=== PATIENT | male | born 1960 | race Caucasian/White ===

== ENCOUNTER 2017-03-29 09:11 | Emergency (ER) | payer SELFPAY ==
[~2017-03-29] VITALS: Ht 177.8 cm; Wt 80.0 kg
[~2017-03-29 09:11] MED LIST: PERC5TAB12 PO
[2017-03-29 09:12] VITALS: BP 170/94; PULSE 80; RESP 20; TEMP 98.3; O2SAT 99
[2017-03-29] MEDS ORDERED: SODIUM CHLOR 0.9% 1000 ML INJ 1,000 ML IV SCH (09:44)
[2017-03-29] MEDS ORDERED: SODIUM CHLORIDE 0.9% FLUSH 10 ML FLUSH IV FLUSH PRN (09:45)
[2017-03-29] MEDS ORDERED: MORPHINE SULFATE 4 MG/ML INJ IV PUSH ONE (09:45)
[2017-03-29] MEDS ORDERED: ONDANSETRON HCL 4 MG/2 ML VIAL IVP ONE (09:45)
--- NOTE | 2017-03-29 10:00 | PD ---
HPI Chief Complaint: Abdominal Pain Time Seen by Provider: 09:34 Travel History International Travel<30 days: No Contact w/Intl Traveler<30days: No Traveled to known affect area: No History of Present Illness HPI Patient is 56-year-old male presents emergency Department with his for complaints of suprapubic tenderness and dysuria. Patient states his been going on for a few days and gradually worsening. Endorses several episodes of nonbilious nonbloody vomiting. No changes in stool habits no constipation or diarrhea no blood in the stool. Patient thinks that "I think her something wrong with my prostate". Denies any penile discharge, Denies any fever. PFSH Past Medical History High Cholesterol: Yes Diminished Hearing: No Kidney Stones: Yes Past Surgical History Surgical History: No Previous Surgery Social History Alcohol Use: Yes (rarely) Tobacco Use: Yes (1/2 ppd) Substance Use: No Allergies-Medications (Allergen,Severity, Reaction): Coded Allergies: Aspirin (Verified Allergy, Severe, 08/16/16) Reported Meds & Prescriptions Reported Meds & Active Scripts Active Ciprofloxacin (Ciprofloxacin HCl) 500 Mg Tab 500 Mg PO BID 7 Days Zofran Odt (Ondansetron Odt) 4 Mg Tab 4 Mg SL Q6HR PRN [place] (Hydrocodone-Acetaminophen) 5-325 mg Tab 1 Tab PO Q6H PRN Flomax (Tamsulosin HCl) 0.4 Mg Cap 0.4 Mg PO HS Review of Systems Except as stated in HPI: all other systems reviewed are Neg Physical Exam Narrative GENERAL: Well-developed well-nourished, appears uncomfortable. SKIN: Warm and dry. HEAD: Atraumatic. Normocephalic. EYES: Pupils equal and round. No scleral icterus. No injection or drainage. ENT: No nasal bleeding or discharge. Mucous membranes pink and moist. NECK: Trachea midline. No JVD. CARDIOVASCULAR: Regular rate and rhythm. RESPIRATORY: No accessory muscle use. Clear to auscultation. Breath sounds equal bilaterally. GASTROINTESTINAL: Abdomen soft, minimally tender in the superpubic area. nondistended. Hepatic and splenic margins not palpable. GENITOURINARY: Grossly normal male genitalia, prostate smooth and nontender. MUSCULOSKELETAL: Extremities without clubbing, cyanosis, or edema. No obvious deformities. NEUROLOGICAL: Awake and alert. No obvious cranial nerve deficits. Motor grossly within normal limits. Five out of 5 muscle strength in the arms and legs. Normal speech. PSYCHIATRIC: Appropriate mood and affect; insight and judgment normal. Data Data Last Documented VS Vital Signs Date Time Temp Pulse Resp B/P Pulse Ox O2 Delivery O2 Flow Rate FiO2 03/29/17 11:20 78 16 154/88 99 03/29/17 09:57 Room Air 03/29/17 09:12 98.3 Orders Complete Blood Count With Diff (03/29/17 09:44) Comprehensive Metabolic Panel (03/29/17 09:44) Urinalysis - C+S If Indicated (03/29/17 09:44) Iv Access Insert/Monitor (03/29/17 09:44) Ecg Monitoring (03/29/17 09:44) Oximetry (03/29/17 09:44) Morphine Inj (Morphine Inj) (03/29/17 09:45) Ondansetron Inj (Zofran Inj) (03/29/17 09:45) Sodium Chlor 0.9% 1000 Ml Inj (Ns 1000 M (03/29/17 09:44) Sodium Chloride 0.9% Flush (Ns Flush) (03/29/17 09:45) Ed Poc Ultrasound (03/29/17 09:44) Acetamin-Hydrocod 325-5 Mg ([place] 5-325 (03/29/17 11:15) Labs Laboratory Tests Test 03/29/17 09:55 White Blood Count 7.7 TH/MM3 Red Blood Count 4.24 MIL/MM3 Hemoglobin 13.0 GM/DL Hematocrit 38.3 % Mean Corpuscular Volume 90.2 FL Mean Corpuscular Hemoglobin 30.7 PG Mean Corpuscular Hemoglobin 34.1 % Concent Red Cell Distribution Width 14.9 % Platelet Count 250 TH/MM3 Mean Platelet Volume 9.4 FL Neutrophils (%) (Auto) 78.7 % Lymphocytes (%) (Auto) 14.8 % Monocytes (%) (Auto) 5.9 % Eosinophils (%) (Auto) 0.2 % Basophils (%) (Auto) 0.4 % Neutrophils # (Auto) 6.1 TH/MM3 Lymphocytes # (Auto) 1.1 TH/MM3 Monocytes # (Auto) 0.5 TH/MM3 Eosinophils # (Auto) 0.0 TH/MM3 Basophils # (Auto) 0.0 TH/MM3 CBC Comment DIFF FINAL Differential Comment Urine Color COLORLESS Urine Turbidity CLEAR Urine pH 6.5 Urine Specific [place] 1.001 Urine Protein NEG mg/dL Urine Glucose (UA) NEG mg/dL Urine Ketones NEG mg/dL Urine Occult Blood MOD Urine Nitrite NEG Urine Bilirubin NEG Urine Urobilinogen LESS THAN 2.0 MG/DL Urine Leukocyte Esterase NEG Microscopic Urinalysis Comment CULT NOT INDICATED Sodium Level 140 MEQ/L Potassium Level 3.7 MEQ/L Chloride Level 104 MEQ/L Carbon Dioxide Level 26.4 MEQ/L Anion Gap 10 MEQ/L Blood Urea Nitrogen 14 MG/DL Creatinine 0.81 MG/DL Estimat Glomerular Filtration 98 ML/MIN Rate Random Glucose 104 MG/DL Calcium Level 8.8 MG/DL Total Bilirubin 0.2 MG/DL Aspartate Amino Transf 17 U/L (AST/SGOT) Alanine Aminotransferase 26 U/L (ALT/SGPT) Alkaline Phosphatase 92 U/L Total Protein 7.0 GM/DL Albumin 3.5 GM/DL MDM Medical Decision Making Medical Screen Exam Complete: Yes Emergency Medical Condition: Yes Differential Diagnosis Prostatitis, urinary retention, urinary tract infection, acute abdomen unlikely , STD unlikely, kidney stone. Narrative Course Patient 56-year-old male presents emergency department with urinary symptoms, he states that "I think her something wrong the prostate". Prostate was nontender prostatitis could be considered. Urine is clean. Symptoms could also be attributed to kidney stone and I suggested that a CT examination could be performed however the patient is comfortable currently and I discussed that he could try expected management and return to ED if his symptoms don't resolve in a few days for consideration of CAT scan at that time. He would like to save radiation exposure at this time. Discussed symptomatic management and return to ED criteria as well as follow-up the primary care physician. He is stable for discharge. Procedures Procedure Narrative Bedside ultrasound abdomen: Very little urine in the latter, no hydronephrosis bilaterally. Diagnosis Primary Impression: Dysuria Med/Other Pt SpecificInfo: Prescription(s) given Scripts Ciprofloxacin 500 Mg Axl021 Mg PO BID 7 Days Ref 0 Prov:Piero Tompkins MD 03/29/17 Ondansetron Odt (Zofran Odt)4 Mg Tab4 Mg SL Q6HR PRN (Nausea/Vomiting) #30 TAB Ref 0 Prov:Piero Tompkins MD 03/29/17 Hydrocodone-Acetaminophen ([place])5-325 mg Tab1 Tab PO Q6H PRN (PAIN) #15 TAB Ref 0 Prov:Piero Tompkins MD 03/29/17 Tamsulosin (Flomax)0.4 Mg Cap0.4 Mg PO HS #30 CAP Ref 0 Prov:Piero Tompkins MD 03/29/17 Disposition: 01 DISCHARGE HOME Condition: Stable Piero Tompkins MD Mar 29, 2017 10:00
[2017-03-29 10:09] LABS: AUTOMATED NEUTROPHIL # 6.1 TH/MM3 (1.8-7.7); BASOPHIL % 0.4 % (0.0-2.0); EOSINOPHIL % 0.2 % (0.0-4.0); HEMATOCRIT 38.3 % (39.0-51.0); HEMO FLAGS DIFF FINAL; LYMPH % 14.8 % (9.0-44.0); LYMPHOCYTE # 1.1 TH/MM3 (1.0-4.8); MEAN CELL VOLUME 90.2 FL (80.0-100.0); MEAN CORPUSCULAR HEMOGLOBIN 30.7 PG (27.0-34.0); MEAN CORPUSCULAR HGB CONC 34.1 % (32.0-36.0); MONO % 5.9 % (0.0-8.0); NEUT % 78.7 % (16.0-70.0); PLATELET COUNT 250 TH/MM3 (150-450); RED BLOOD COUNT 4.24 MIL/MM3 (4.50-5.90); RED CELL DISTRIBUTION WIDTH 14.9 % (11.6-17.2); WHITE BLOOD COUNT 7.7 TH/MM3 (4.0-11.0)
[2017-03-29 10:19] LABS: BLOOD, URINE MOD (NEG); GLUCOSE,URINE NEG (NEG); KETONE, URINE NEG (NEG); NITRITE,URINE NEG (NEG); PH, URINE 6.5 (5.0-8.5); URINE COLOR COLORLESS (YELLW/STRAW)
[2017-03-29 10:23] LABS: ANION GAP 10 MEQ/L (5-15); AST (GOT) 17 U/L (15-37); BICARBONATE 26.4 MEQ/L (21.0-32.0); BLOOD UREA NITROGEN 14 MG/DL (7-18); CHLORIDE 104 MEQ/L (98-107); GLOMERULAR FILTRATION RATE 98 ML/MIN (>89); POTASSIUM 3.7 MEQ/L (3.5-5.1); SODIUM (NA) 140 MEQ/L (136-145)
[2017-03-29 10:24] LABS: ALT (GPT) 26 U/L (12-78); COMMENT (UR) CULT NOT INDICATED; CULTURE IF INDICATED CULT NOT INDICATED
[2017-03-29 10:27] LABS: ALKALINE PHOSPHATASE 92 U/L (45-117); TOTAL BILIRUBIN ADULT 0.2 MG/DL (0.2-1.0)
[2017-03-29 11:06] VITALS: RESP 18
[2017-03-29] MEDS ORDERED: ACETAMINOPHEN/HYDROcodone 325 MG/5 MG TAB PO ONE (11:15)
[2017-03-29] MEDS ORDERED: TAMS5CAP PO (11:17)
[2017-03-29] MEDS ORDERED: ZOFR4TAB3 SL (11:17)
[2017-03-29] MEDS ORDERED: NORC5TAB PO (11:17)
[2017-03-29] MEDS ORDERED: CIPR500T2 PO (11:17)
[2017-03-29 11:20] VITALS: BP 154/88
== END 2017-03-29 11:34 | disposition home or self-care (01) ==
LOC: NEPE 09:11
DX: R30.0 Dysuria (principal); E78.00 Pure hypercholesterolemia, unspecified; F17.200 Nicotine dependence, unspecified, uncomplicated
CPT/HCPCS: 80053; 81001; 85025; 96361; 96374; 96375; 99284; J2270; J2405; J7030

== ENCOUNTER 2017-06-07 23:12 | Emergency (ER) | payer SELFPAY ==
[~2017-06-07] VITALS: Ht 177.8 cm; Wt 80.0 kg
[~2017-06-07 23:12] MED LIST changes: +CIPR500T2 PO; +NORC5TAB PO; -PERC5TAB12 PO; +TAMS5CAP PO; +ZOFR4TAB3 SL
[2017-06-07 23:14] VITALS: BP 174/101; PULSE 86; RESP 18; TEMP 98.2; O2SAT 99
[2017-06-08] MEDS ORDERED: SODIUM CHLOR 0.9% 1000 ML INJ 1,000 ML IV ONE ×2 (00:15→01:45)
[2017-06-08] MEDS ORDERED: KETOROLAC TROMETHAMINE 30 MG/ML (IVP) VIAL IV PUSH ONE (00:15)
[2017-06-08] MEDS ORDERED: diphenhydrAMINE HCL 50 MG/ML VIAL IV PUSH ONE (00:15)
[2017-06-08] MEDS ORDERED: METOCLOPRAMIDE HCL 10 MG/2 ML VIAL IV PUSH ONE (00:15)
--- NOTE | 2017-06-08 00:32 | PD ---
HPI Chief Complaint: Flank/Kidney Pain Time Seen by Provider: 00:13 Travel History International Travel<30 days: No Contact w/Intl Traveler<30days: No Traveled to known affect area: No History of Present Illness HPI 56-year-old male with a history of nephrolithiasis presents to emergency department with a three-hour history of left flank pain with radiation into the left lower quadrant and groin. Patient has associated nausea vomiting. He states the pain is a 10/10 sharp in nature. Patient also reports pain into the left testicle. Positive diaphoresis. He has associated increased frequency and urgency. He denies any hematuria. No hematemesis. No melena. No fever chills. Patient reports this to be similar to when he said kidney stones in the past. Patient had a kidney stone last in August of last year. He was referred to Dr. Fernandez but he was never seen due to lack of payment. When he was seen he had a 6 mm stone on the left as well as a right parenchymal irregularity consistent with mass versus tumor. PFSH Past Medical History Narrative Medical Hypercholesterolemia, nephrolithiasis High Cholesterol: Yes Diminished Hearing: No Kidney Stones: Yes Tetanus Vaccination: Unknown Past Surgical History Surgical History: No Previous Surgery Social History Alcohol Use: Yes (rarely) Tobacco Use: Yes (1/2 ppd) Substance Use: No Allergies-Medications (Allergen,Severity, Reaction): Coded Allergies: aspirin (Unverified Allergy, Severe, 06/08/17) Reported Meds & Prescriptions Reported Meds & Active Scripts Active Flomax (Tamsulosin HCl) 0.4 Mg Cap 0.4 Mg PO HS Percocet (Oxycodone-Acetaminophen) 5-325 mg Tab 1-2 Tab PO Q6H PRN Zofran (Ondansetron HCl) 4 Mg Tab 4 Mg PO Q6HR PRN Review of Systems Except as stated in HPI: all other systems reviewed are Neg Physical Exam Narrative GENERAL: This is a well-nourished, well-developed patient, in mild to moderate distress secondary to pain. SKIN: No rashes, ecchymoses or lesions. Warm and mildly clammy. HEAD: Atraumatic. Normocephalic. EYES: PERRL, EOMI, no discharge or injection. No scleral icterus. EARS: Clear NOSE: Nasal turbinates appear normal. THROAT: Mucosa pink and moist. Airway patent. NECK: Trachea midline. supple, moves head freely. LUNGS: Clear to auscultation. CV: Regular in rhythm. Back: No central bony tenderness palpation of dorsal lumbar spine. Positive left CVA tenderness. ABDOMEN: Soft nontender. No guarding or rebound. GENITOURINARY: Circumcised. Testes descended bilaterally without evidence of rotation. No lesions or erythema. No urethral discharge. EXT: No clubbing cyanosis or edema. Data Data Last Documented VS Vital Signs Date Time Temp Pulse Resp B/P (MAP) Pulse Ox O2 Delivery O2 Flow Rate FiO2 06/08/17 01:25 78 18 141/80 (100) 98 Room Air 06/07/17 23:14 98.2 Orders Orders Complete Blood Count With Diff (06/08/17 00:14) Basic Metabolic Panel (Bmp) (06/08/17 00:14) Urinalysis - C+S If Indicated (06/08/17 00:14) Sodium Chlor 0.9% 1000 Ml Inj (Ns 1000 M (06/08/17 00:15) Ketorolac Inj (Toradol Inj) (06/08/17 00:15) Diphenhydramine Inj (Benadryl Inj) (06/08/17 00:15) Metoclopramide Inj (Reglan Inj) (06/08/17 00:15) Iv Access Insert/Monitor (06/08/17 00:14) Morphine Inj (Morphine Inj) (06/08/17 01:15) Sodium Chlor 0.9% 1000 Ml Inj (Ns 1000 M (06/08/17 01:45) Mandatory Outpatient Referral (06/08/17 01:51) Labs Laboratory Tests Test 06/08/17 00:40 06/08/17 01:20 White Blood Count 10.6 TH/MM3 Red Blood Count 4.25 MIL/MM3 Hemoglobin 13.2 GM/DL Hematocrit 39.5 % Mean Corpuscular Volume 93.1 FL Mean Corpuscular Hemoglobin 31.2 PG Mean Corpuscular Hemoglobin Concent 33.5 % Red Cell Distribution Width 14.5 % Platelet Count 277 TH/MM3 Mean Platelet Volume 8.8 FL Neutrophils (%) (Auto) 64.7 % Lymphocytes (%) (Auto) 25.5 % Monocytes (%) (Auto) 8.5 % Eosinophils (%) (Auto) 0.8 % Basophils (%) (Auto) 0.5 % Neutrophils # (Auto) 6.9 TH/MM3 Lymphocytes # (Auto) 2.7 TH/MM3 Monocytes # (Auto) 0.9 TH/MM3 Eosinophils # (Auto) 0.1 TH/MM3 Basophils # (Auto) 0.1 TH/MM3 CBC Comment DIFF FINAL Differential Comment Blood Urea Nitrogen 13 MG/DL Creatinine 0.91 MG/DL Random Glucose 124 MG/DL Calcium Level 8.9 MG/DL Sodium Level 139 MEQ/L Potassium Level 4.1 MEQ/L Chloride Level 103 MEQ/L Carbon Dioxide Level 29.9 MEQ/L Anion Gap 6 MEQ/L Estimat Glomerular Filtration Rate 86 ML/MIN Urine Color LIGHT-YELLOW Urine Turbidity CLEAR Urine pH 6.5 Urine Specific [place] 1.016 Urine Protein NEG mg/dL Urine Glucose (UA) NEG mg/dL Urine Ketones NEG mg/dL Urine Occult Blood NEG Urine Nitrite NEG Urine Bilirubin NEG Urine Urobilinogen LESS THAN 2.0 MG/DL Urine Leukocyte Esterase NEG Urine RBC 1 /hpf Urine WBC 2 /hpf Urine Amorphous Sediment RARE Urine Mucus FEW /lpf Microscopic Urinalysis Comment CULT NOT INDICATED MDM Medical Decision Making Medical Screen Exam Complete: Yes Emergency Medical Condition: Yes Medical Record Reviewed: Yes Interpretation(s) Laboratory Tests Test 06/08/17 00:40 06/08/17 01:20 White Blood Count 10.6 TH/MM3 Red Blood Count 4.25 MIL/MM3 Hemoglobin 13.2 GM/DL Hematocrit 39.5 % Mean Corpuscular Volume 93.1 FL Mean Corpuscular Hemoglobin 31.2 PG Mean Corpuscular Hemoglobin Concent 33.5 % Red Cell Distribution Width 14.5 % Platelet Count 277 TH/MM3 Mean Platelet Volume 8.8 FL Neutrophils (%) (Auto) 64.7 % Lymphocytes (%) (Auto) 25.5 % Monocytes (%) (Auto) 8.5 % Eosinophils (%) (Auto) 0.8 % Basophils (%) (Auto) 0.5 % Neutrophils # (Auto) 6.9 TH/MM3 Lymphocytes # (Auto) 2.7 TH/MM3 Monocytes # (Auto) 0.9 TH/MM3 Eosinophils # (Auto) 0.1 TH/MM3 Basophils # (Auto) 0.1 TH/MM3 CBC Comment DIFF FINAL Differential Comment Blood Urea Nitrogen 13 MG/DL Creatinine 0.91 MG/DL Random Glucose 124 MG/DL Calcium Level 8.9 MG/DL Sodium Level 139 MEQ/L Potassium Level 4.1 MEQ/L Chloride Level 103 MEQ/L Carbon Dioxide Level 29.9 MEQ/L Anion Gap 6 MEQ/L Estimat Glomerular Filtration Rate 86 ML/MIN Urine Color LIGHT-YELLOW Urine Turbidity CLEAR Urine pH 6.5 Urine Specific [place] 1.016 Urine Protein NEG mg/dL Urine Glucose (UA) NEG mg/dL Urine Ketones NEG mg/dL Urine Occult Blood NEG Urine Nitrite NEG Urine Bilirubin NEG Urine Urobilinogen LESS THAN 2.0 MG/DL Urine Leukocyte Esterase NEG Urine RBC 1 /hpf Urine WBC 2 /hpf Urine Amorphous Sediment RARE Urine Mucus FEW /lpf Microscopic Urinalysis Comment CULT NOT INDICATED Differential Diagnosis Differential diagnoses: Nephrolithiasis, ureterolithiasis, hydronephrosis, UTI, pyelonephritis, aneurysm, back strain Narrative Course IV access is obtained. Patient's given Toradol 30 mg IV, Benadryl 50 mg IV and Reglan 10 mg IV. I review the patient's prior visit. The patient states that his pain is nearly 50% improved. He is given an additional 5 mg of morphine IV. The patient is now pain-free. He states that he feels dehydrated and would like a second liter of fluid. He is given a second liter normal saline. The patient medically stable for discharge. A mandatory follow-up has been given. Patient did not follow-up with the urologist on his last visit due to lack of funds. This is left flank pain, history of nephrolithiasis Diagnosis Primary Impression: Left flank pain Additional Impression: Nephrolithiasis Patient Instructions: Narcotic given in the ED, General Instructions Departure Forms: Tests/Procedures, Work Release Special Instructions: No work 2 days. Additional Instructions: Rest. Increase fluids. Zofran, Flomax, Percocet. Follow-up with patient assistance. Mandatory follow-up with urology has been ordered. Return to the ER for emergencies. Follow-up with a urologist Med/Other Pt SpecificInfo: Prescription(s) given Scripts Tamsulosin (Flomax) 0.4 Mg Cap 0.4 MG PO HS for Manage Prostate Problems, #14 CAP 0 Refills Prov: Lizett Squires MD 06/08/17 Oxycodone-Acetaminophen (Percocet) 5-325 mg Tab 1-2 TAB PO Q6H Y for PAIN, #20 TAB 0 Refills Prov: Lizett Squires MD 06/08/17 Ondansetron (Zofran) 4 Mg Tab 4 MG PO Q6HR Y for NAUSEA OR VOMITING, #12 TAB 0 Refills Prov: Lizett Squires MD 06/08/17 Disposition: 01 DISCHARGE HOME Condition: Stable Teddy Ramos Jun 08, 2017 00:31
[2017-06-08 00:58] LABS: AUTOMATED NEUTROPHIL # 6.9 TH/MM3 (1.8-7.7); BASOPHIL # 0.1 TH/MM3 (0-0.2); BASOPHIL % 0.5 % (0.0-2.0); EOSINOPHIL # 0.1 TH/MM3 (0-0.4); EOSINOPHIL % 0.8 % (0.0-4.0); HEMATOCRIT 39.5 % (39.0-51.0); HEMO FLAGS DIFF FINAL; LYMPH % 25.5 % (9.0-44.0); LYMPHOCYTE # 2.7 TH/MM3 (1.0-4.8); MEAN CELL VOLUME 93.1 FL (80.0-100.0); MEAN CORPUSCULAR HEMOGLOBIN 31.2 PG (27.0-34.0); MEAN CORPUSCULAR HGB CONC 33.5 % (32.0-36.0); MONO % 8.5 % (0.0-8.0); NEUT % 64.7 % (16.0-70.0); PLATELET COUNT 277 TH/MM3 (150-450); RED BLOOD COUNT 4.25 MIL/MM3 (4.50-5.90); RED CELL DISTRIBUTION WIDTH 14.5 % (11.6-17.2); WHITE BLOOD COUNT 10.6 TH/MM3 (4.0-11.0)
[2017-06-08] MEDS ORDERED: MORPHINE SULFATE 8 MG/ML INJ IV PUSH ONE (01:15)
[2017-06-08 01:25] VITALS: BP 141/80; PULSE 78; RESP 18; O2SAT 98
[2017-06-08 01:25] LABS: BICARBONATE 29.9 MEQ/L (21.0-32.0); POTASSIUM 4.1 MEQ/L (3.5-5.1)
[2017-06-08 01:40] LABS: BLOOD, URINE NEG (NEG); COMMENT (UR) CULT NOT INDICATED; CULTURE IF INDICATED CULT NOT INDICATED; GLUCOSE,URINE NEG (NEG); KETONE, URINE NEG (NEG); MUCUS URINE FEW /lpf (OCC); NITRITE,URINE NEG (NEG); PH, URINE 6.5 (5.0-8.5); URINE COLOR LIGHT-YELLOW (YELLW/STRAW)
[2017-06-08] MEDS ORDERED: TAMS5CAP PO (01:48)
[2017-06-08] MEDS ORDERED: ZOFR4TAB PO (01:48)
[2017-06-08] MEDS ORDERED: PERC5TAB12 PO (01:48)
== END 2017-06-08 03:09 | disposition home or self-care (01) ==
LOC: NEPD 23:12
DX: N20.0 Calculus of kidney (principal); F17.200 Nicotine dependence, unspecified, uncomplicated
CPT/HCPCS: 80048; 81001; 85025; 96361; 96374; 96375; 99284; J1200; J1885; J2270; J2765; J7030

== ENCOUNTER 2017-06-29 04:16 | Emergency (ER) | payer SELFPAY ==
[~2017-06-29] VITALS: Ht 180.3 cm; Wt 79.5 kg
[~2017-06-29 04:16] MED LIST changes: -CIPR500T2 PO; -NORC5TAB PO; +PERC5TAB12 PO; +ZOFR4TAB PO; -ZOFR4TAB3 SL
[2017-06-29 04:18] VITALS: BP 169/101; PULSE 97; RESP 18; TEMP 97.5; O2SAT 97
[2017-06-29] MEDS ORDERED: SODIUM CHLOR 0.9% 1000 ML INJ 1,000 ML IV SCH (04:37)
[2017-06-29] MEDS ORDERED: ONDANSETRON HCL 4 MG/2 ML VIAL IVP ONE (04:45)
[2017-06-29] MEDS ORDERED: MORPHINE SULFATE 4 MG/ML INJ IV PUSH ONE (04:45)
[2017-06-29] MEDS ORDERED: KETOROLAC TROMETHAMINE 30 MG/ML (IVP) VIAL IVP ONE (04:45)
[2017-06-29] MEDS ORDERED: SODIUM CHLORIDE 0.9% FLUSH 10 ML FLUSH IV FLUSH PRN (04:45)
[2017-06-29 04:52] VITALS: O2SAT 97
[2017-06-29 05:08] LABS: AUTOMATED NEUTROPHIL # 3.2 TH/MM3 (1.8-7.7); BASOPHIL # 0.1 TH/MM3 (0-0.2); BASOPHIL % 0.9 % (0.0-2.0); EOSINOPHIL # 0.1 TH/MM3 (0-0.4); EOSINOPHIL % 1.8 % (0.0-4.0); HEMATOCRIT 41.9 % (39.0-51.0); HEMO FLAGS DIFF FINAL; LYMPH % 40.2 % (9.0-44.0); LYMPHOCYTE # 2.6 TH/MM3 (1.0-4.8); MEAN CELL VOLUME 93.9 FL (80.0-100.0); MEAN CORPUSCULAR HEMOGLOBIN 31.6 PG (27.0-34.0); MEAN CORPUSCULAR HGB CONC 33.7 % (32.0-36.0); NEUT % 48.1 % (16.0-70.0); PLATELET COUNT 261 TH/MM3 (150-450); RED BLOOD COUNT 4.46 MIL/MM3 (4.50-5.90); RED CELL DISTRIBUTION WIDTH 14.6 % (11.6-17.2); WHITE BLOOD COUNT 6.6 TH/MM3 (4.0-11.0)
[2017-06-29 05:21] LABS: ALT (GPT) 24 U/L (12-78)
[2017-06-29 05:23] LABS: ALKALINE PHOSPHATASE 102 U/L (45-117); BLOOD, URINE NEG (NEG); COMMENT (UR) CULT NOT INDICATED; CULTURE IF INDICATED CULT NOT INDICATED; GLUCOSE,URINE NEG (NEG); HYALINE CAST, URINE 1 /lpf (RARE); KETONE, URINE NEG (NEG); MUCUS URINE FEW /lpf (OCC); NITRITE,URINE NEG (NEG); PH, URINE 5.5 (5.0-8.5); TOTAL BILIRUBIN ADULT 0.2 MG/DL (0.2-1.0); URINE COLOR LIGHT-YELLOW (YELLW/STRAW)
[2017-06-29 05:27] LABS: ANION GAP 6 MEQ/L (5-15); AST (GOT) 30 U/L (15-37); BICARBONATE 26.5 MEQ/L (21.0-32.0); BLOOD UREA NITROGEN 12 MG/DL (7-18); CHLORIDE 107 MEQ/L (98-107); GLOMERULAR FILTRATION RATE 96 ML/MIN (>89); POTASSIUM 4.1 MEQ/L (3.5-5.1); SODIUM (NA) 139 MEQ/L (136-145)
--- NOTE | 2017-06-29 05:41 | RADRPT ---
EXAM DATE/TIME: 06/29/2017 05:00 [facility] COMPARISON: CT ABDOMEN & PELVIS W/O CONTRAST, August 16, 2016, 22:50. INDICATIONS : Left flank pain. Evaluate for calculi. ORAL CONTRAST: No oral contrast ingested. RADIATION DOSE: 6.60 CTDIvol (mGy) MEDICAL HISTORY : Renal calculi. SURGICAL HISTORY : None. ENCOUNTER: Initial ACUITY: 2 days PAIN SCALE: 10/10 LOCATION: Left flank TECHNIQUE: Volumetric scanning of the abdomen and pelvis was performed. Using automated exposure control and ad justment of the mA and/or kV according to patient size, radiation dose was kept as low as reasonably achievable to obtain optimal diagnostic quality images. DICOM format image data is available electro nically for review and comparison. FINDINGS: LOWER LUNGS: The visualized lower lungs are clear. LIVER: Homogeneous density without lesion. There is no dilation of the biliary tree. No calcified gallston es. SPLEEN: Normal size without lesion. PANCREAS: Within normal limits. KIDNEYS: Bilateral renal calculi. The largest on the left measures 7 mm in diameter but is non-obstructing. On the left, subcentimeter renal calculi but there is hydronephrosis and hydroureter due to Lasix kandice meter ureteric stone which has moved from the mid ureter in August of last year and is now position ed just above the UVJ (assuming this represents the same stone). A 1.9 cm well-circumscribed nodule o ff the lateral lower pole of the right kidney does not have characteristics of a benign cyst and ther efore, requires further evaluation. ADRENAL GLANDS: Within normal limits. VASCULAR: There is no aortic aneurysm. BOWEL/MESENTERY: Diverticular disease of the sigmoid without diverticulitis. ABDOMINAL WALL: Within normal limits. RETROPERITONEUM: There is no lymphadenopathy. BLADDER: No wall thickening or mass. REPRODUCTIVE: Prostatic calcifications. Prostate is borderline prominent at 4.4 cm. INGUINAL: There is no lymphadenopathy or hernia. MUSCULOSKELETAL: Within normal limits for patient age. CONCLUSION: 1. Bilateral renal calculi. The largest on the left measure 7 mm in diameter but is nonobstructing. 2. 6 mm ureteric stone distally on the left, just above the UVJ resulting hydronephrosis and hydroure ter. Patient had a obstructing 6 mm stone in August 2016 within the mid left ureter. This could rep resent the same calculus which has moved more distally. 3. Diverticular disease of the sigmoid without diverticulitis. 4. Borderline prominent prostate with parenchymal calcification Hilario De La Fuente MD on June 29, 2017 at 5:34 Board Certified Radiologist. This report was verified electronically.
[2017-06-29] MEDS ORDERED: oxyCODONE/ACETAMINOPHEN 5 MG/325 MG TAB PO ONE (06:00)
[2017-06-29 06:30] VITALS: BP 175/93; PULSE 80; RESP 18; O2SAT 99
[2017-06-29] MEDS ORDERED: HYDR-3533 PO (06:48)
[2017-06-29] MEDS ORDERED: TAMS5CAP PO (06:48)
--- NOTE | 2017-06-29 06:48 | PD ---
HPI Chief Complaint: Flank/Kidney Pain Time Seen by Provider: 04:28 Travel History International Travel<30 days: No Contact w/Intl Traveler<30days: No Traveled to known affect area: No History of Present Illness HPI Patient is a 57-year-old male history of kidney stones, who comes in complaining of left-sided flank pain. He says this started a few hours ago. He says he's had some nausea and vomiting. He denies difficulty urinating. He denies fever or chills. He says that she will have insurance and 30 days, and then he will see a urologist. He did not take anything at home for pain. [facility] Past Medical History High Cholesterol: Yes Diminished Hearing: No Kidney Stones: Yes Past Surgical History Surgical History: No Previous Surgery Social History Alcohol Use: Yes (rarely) Tobacco Use: Yes (1/2 ppd) Substance Use: No Allergies-Medications (Allergen,Severity, Reaction): Coded Allergies: aspirin (Unverified Allergy, Severe, 06/08/17) Reported Meds & Prescriptions Reported Meds & Active Scripts Active No Active Prescriptions or Reported Medications Review of Systems Except as stated in HPI: all other systems reviewed are Neg General / Constitutional: No: Fever, Chills HENT: No: Headaches, Lightheadedness Cardiovascular: No: Chest Pain or Discomfort Respiratory: No: Shortness of Breath Gastrointestinal: Positive: Nausea, Vomiting, Abdominal Pain Genitourinary: Positive: Flank Pain Skin: No Rash Neurologic: No: Weakness, Dizziness Physical Exam Narrative GENERAL: Awake and alert, in no acute distress. SKIN: Focused skin assessment warm/dry. HEAD: Atraumatic. Normocephalic. EYES: Pupils equal and round. No scleral icterus. ENT: Mucous membranes pink and moist. NECK: Trachea midline. No JVD. CARDIOVASCULAR: Regular rate and rhythm. No murmur appreciated. RESPIRATORY: No accessory muscle use. Clear to auscultation. Breath sounds equal bilaterally. GASTROINTESTINAL: Abdomen soft, non-tender, nondistended. Left CVA tenderness. MUSCULOSKELETAL: No obvious deformities. No clubbing. No cyanosis. No edema. NEUROLOGICAL: Awake and alert. No obvious cranial nerve deficits. Motor grossly within normal limits. Normal speech. PSYCHIATRIC: Appropriate mood and affect; insight and judgment normal. Data Data Last Documented VS Vital Signs Date Time Temp Pulse Resp B/P (MAP) Pulse Ox O2 Delivery O2 Flow Rate FiO2 06/29/17 06:30 80 18 175/93 (120) 99 Room Air 06/29/17 04:18 97.5 Orders Orders Complete Blood Count With Diff (06/29/17 04:37) Comprehensive Metabolic Panel (06/29/17 04:37) Urinalysis - C+S If Indicated (06/29/17 04:37) Ct Abd/Pel W/O Iv Contrast (06/29/17 04:37) Iv Access Insert/Monitor (06/29/17 04:37) Ecg Monitoring (06/29/17 04:37) Oximetry (06/29/17 04:37) Morphine Inj (Morphine Inj) (06/29/17 04:45) Ondansetron Inj (Zofran Inj) (06/29/17 04:45) Sodium Chlor 0.9% 1000 Ml Inj (Ns 1000 M (06/29/17 04:37) Sodium Chloride 0.9% Flush (Ns Flush) (06/29/17 04:45) Ketorolac Inj (Toradol Inj) (06/29/17 04:45) Oxycodone-Acetamin 5-325 Mg (Percocet (06/29/17 06:00) Labs Laboratory Tests Test 06/29/17 04:30 White Blood Count 6.6 TH/MM3 Red Blood Count 4.46 MIL/MM3 Hemoglobin 14.1 GM/DL Hematocrit 41.9 % Mean Corpuscular Volume 93.9 FL Mean Corpuscular Hemoglobin 31.6 PG Mean Corpuscular Hemoglobin Concent 33.7 % Red Cell Distribution Width 14.6 % Platelet Count 261 TH/MM3 Mean Platelet Volume 9.3 FL Neutrophils (%) (Auto) 48.1 % Lymphocytes (%) (Auto) 40.2 % Monocytes (%) (Auto) 9.0 % Eosinophils (%) (Auto) 1.8 % Basophils (%) (Auto) 0.9 % Neutrophils # (Auto) 3.2 TH/MM3 Lymphocytes # (Auto) 2.6 TH/MM3 Monocytes # (Auto) 0.6 TH/MM3 Eosinophils # (Auto) 0.1 TH/MM3 Basophils # (Auto) 0.1 TH/MM3 CBC Comment DIFF FINAL Differential Comment Urine Color LIGHT-YELLOW Urine Turbidity CLEAR Urine pH 5.5 Urine Specific [place] 1.008 Urine Protein NEG mg/dL Urine Glucose (UA) NEG mg/dL Urine Ketones NEG mg/dL Urine Occult Blood NEG Urine Nitrite NEG Urine Bilirubin NEG Urine Urobilinogen LESS THAN 2.0 MG/DL Urine Leukocyte Esterase NEG Urine RBC 1 /hpf Urine WBC 1 /hpf Urine Hyaline Casts 1 /lpf Urine Mucus FEW /lpf Microscopic Urinalysis Comment CULT NOT INDICATED Blood Urea Nitrogen 12 MG/DL Creatinine 0.82 MG/DL Random Glucose 107 MG/DL Total Protein 7.2 GM/DL Albumin 3.6 GM/DL Calcium Level 9.0 MG/DL Alkaline Phosphatase 102 U/L Aspartate Amino Transf (AST/SGOT) 30 U/L Alanine Aminotransferase (ALT/SGPT) 24 U/L Total Bilirubin 0.2 MG/DL Sodium Level 139 MEQ/L Potassium Level 4.1 MEQ/L Chloride Level 107 MEQ/L Carbon Dioxide Level 26.5 MEQ/L Anion Gap 6 MEQ/L Estimat Glomerular Filtration Rate 96 ML/MIN [facility] Medical Decision Making Medical Screen Exam Complete: Yes Emergency Medical Condition: Yes Differential Diagnosis UTI versus pyelonephritis versus renal stone Narrative Course Patient is a 57-year-old male comes in complaining of left flank pain. Exam shows left CVA tenderness. IV established, labs sent. Labs show normal creatinine. Urinalysis is negative for blood or infection. CT of the abdomen pelvis shows a 6 mm stone. Patient given IV fluids, morphine, Toradol, Zofran. Patient says the pain started to come back, given a Percocet. He is offered admission, but declines at this time. He is advised of the results of his CAT scan. He is aware of the mass on his kidney. He says he'll follow-up when he gets insurance and 30 days. He is advised to drink plenty of fluids. Discharge with prescription for pain medicine Flomax. Advised to return to the ED as needed for any worsening symptoms. Diagnosis Primary Impression: Nephrolithiasis Referrals: Thien Fernandez DO call for appointment Patient Instructions: General Instructions, Kidney Stones (ED) Additional Instructions: Follow-up with urology. Drink plenty of fluids. Take pain medicine as needed. Return to the ED as needed for any worsening symptoms. Scripts Hydrocodone-Acetaminophen (Lortab) 5-325 Mg Tab 1 TAB PO Q6H Y for PAIN, #10 TAB 0 Refills Prov: Kathy Street MD 06/29/17 Tamsulosin (Flomax) 0.4 Mg Cap 0.4 MG PO HS for Manage Prostate Problems, #7 CAP 0 Refills Prov: Kathy Street MD 06/29/17 Disposition: 01 DISCHARGE HOME Condition: Stable Kathy Street MD Jun 29, 2017 06:48
== END 2017-06-29 06:52 | disposition home or self-care (01) ==
LOC: NEPC 04:16
DX: N20.0 Calculus of kidney (principal); Z87.442 Personal history of urinary calculi; E78.00 Pure hypercholesterolemia, unspecified; F17.210 Nicotine dependence, cigarettes, uncomplicated
CPT/HCPCS: 74176; 80053; 81001; 85025; 96361; 96374; 96375; 99285; J1885; J2270; J2405; J7030